=== PATIENT | female | born 1975 | race Caucasian/White ===

== ENCOUNTER 2020-10-09 18:35 | Emergency (ER) | payer OTHER ==
[2020-10-09 20:34] LABS: BILIRUBIN NEGATIVE (NEGATIVE); BLOOD NEGATIVE Ery/uL (NEGATIVE); CLARITY CLEAR (CLEAR); COLOR YELLOW (YELLOW); GLUCOSE (U) NORMAL (NORMAL); LEUKOCYTES NEGATIVE Leu/uL (NEGATIVE); NITRITE NEGATIVE (NEGATIVE); PROTEIN NEGATIVE (NEGATIVE); SPECIFIC GRAVITY <=1.005 (1.001-1.030); UROBILINOGEN 0.2 mg/dL (0.2-1.0)
[2020-10-09 20:54] LABS: BASOPHIL 0.3 % (0-2); EOSINOPHIL 0.1 % (0-5); HGB 14.5 g/dl (12.5-16.0); LYMPHOCYTE 8.4 % (15-48); MCH 31.9 pg (25.0-31.0); MCHC 33.7 g/dL (32.0-36.0); MCV 94.5 fL (78.0-100.0); MONOCYTE 0.8 % (0-12); NEUTROPHIL 89.9 % (41-80); NRBC 0; PLT 225 K/uL (150-400); RBC 4.55 M/uL (4.20-5.40); RDW 13.2 % (11.5-14.0); WBC 14.3 K/uL (4.0-10.5)
[2020-10-09 21:08] LABS: ALBUMIN 3.6 g/dL (3.4-5.0); BILIRUBIN - TOTAL 0.3 mg/dL (0.2-1.0); BUN/CREAT RATIO (CALC) 11.5 RATIO; CREATININE 0.61 mg/dL (0.51-0.95); GLOBULIN (CALCULATION) 3.8 g/dL; POTASSIUM 4.1 mmol/L (3.5-5.1); TOTAL PROTEIN 7.4 g/dL (6.4-8.2)
[2020-10-09 21:15] LABS: LACTIC ACID 1.8 mmol/L (0.4-1.9)
[2020-10-10] MEDS ORDERED: NORCO 5-325 TA1 EACH PO (08:15)
[2020-10-10] MEDS ORDERED: LEVSIN-SL0.125 M1 SL (08:15)
[2020-10-10] MEDS ORDERED: PHENERGAN25 M1 PO (08:15)
[2020-10-10] MEDS ORDERED: CORTEF10 MG PO (08:15)
== END 2020-10-10 08:54 | disposition home or self-care (01) ==
LOC: FER 18:35
PROVIDERS: Emergency Medicine Emergency Medical Services
DX: R10.84 Generalized abdominal pain (principal); R11.2 Nausea with vomiting, unspecified; R19.7 Diarrhea, unspecified; N83.202 Unspecified ovarian cyst, left side; F17.200 Nicotine dependence, unspecified, uncomplicated; Z88.2 Allergy status to sulfonamides; Z88.8 Allergy status to other drugs, medicaments and biological substances; Z88.1 Allergy status to other antibiotic agents; Z79.899 Other long term (current) drug therapy
CPT/HCPCS: 36415; 80053; 81003; 83605; 84145; 85025; 87040; J1170; J1720; J1885; J2405; J2550; J7030; Q9967

== ENCOUNTER 2020-11-18 09:37 | Emergency (ER) | payer OTHER ==
[~2020-11-18 09:37] MED LIST: CORTEF10 MG PO; LEVSIN-SL0.125 M1 SL; NORCO 5-325 TA1 EACH PO; PHENERGAN25 M1 PO
[2020-11-18 10:30] LABS: BILIRUBIN NEGATIVE (NEGATIVE); BLOOD 1+ Ery/uL (NEGATIVE); CLARITY CLEAR (CLEAR); COLOR YELLOW (YELLOW); GLUCOSE (U) NORMAL (NORMAL); LEUKOCYTES NEGATIVE Leu/uL (NEGATIVE); NITRITE NEGATIVE (NEGATIVE); PROTEIN NEGATIVE (NEGATIVE); UROBILINOGEN 0.2 mg/dL (0.2-1.0)
[2020-11-18 10:36] LABS: BASOPHIL 0.4 % (0-2); EOSINOPHIL 2.8 % (0-5); HCT 40.9 % (37.0-47.0); HGB 14.1 g/dl (12.5-16.0); LYMPHOCYTE 30.4 % (15-48); MCHC 34.5 g/dL (32.0-36.0); MCV 92.7 fL (78.0-100.0); MONOCYTE 9.8 % (0-12); MPV 11.9 fL (6.0-9.5); NEUTROPHIL 56.2 % (41-80); NRBC 0; PLT 227 K/uL (150-400); RBC 4.41 M/uL (4.20-5.40); RDW 13.2 % (11.5-14.0); WBC 9.7 K/uL (4.0-10.5)
[2020-11-18 10:40] LABS: URINARY RBC RARE
[2020-11-18 11:07] LABS: ALBUMIN 3.4 g/dL (3.4-5.0); BILIRUBIN - TOTAL 0.2 mg/dL (0.2-1.0); BUN/CREAT RATIO (CALC) 10.2 RATIO; CREATININE 0.59 mg/dL (0.51-0.95); GLOBULIN (CALCULATION) 3.5 g/dL; POTASSIUM 3.7 mmol/L (3.5-5.1); TOTAL PROTEIN 6.9 g/dL (6.4-8.2)
[2020-11-18] MEDS ORDERED: NORCO 5-325 TA1 EACH PO (14:20)
[2020-11-18] MEDS ORDERED: ZOFRAN4 M1 PO (14:20)
== END 2020-11-18 14:39 | disposition home or self-care (01) ==
LOC: FER 09:37
PROVIDERS: Emergency Medicine
DX: K29.70 Gastritis, unspecified, without bleeding (principal); N20.0 Calculus of kidney; F17.200 Nicotine dependence, unspecified, uncomplicated; Z87.19 Personal history of other diseases of the digestive system; Z90.49 Acquired absence of other specified parts of digestive tract; Z88.2 Allergy status to sulfonamides; Z88.8 Allergy status to other drugs, medicaments and biological substances
CPT/HCPCS: 36415; 80053; 81001; 83690; 85025; J1170; J1885; J2405; J7040

== ENCOUNTER 2020-12-31 20:13 | Emergency (ER) | payer OTHER ==
[~2020-12-31 20:13] MED LIST changes: +ZOFRAN4 M1 PO
[2020-12-31 21:45] LABS: BASOPHIL 0.4 % (0-2); EOSINOPHIL 2.2 % (0-5); HCT 42.3 % (37.0-47.0); MCH 31.1 pg (25.0-31.0); MCHC 33.1 g/dL (32.0-36.0); MONOCYTE 6.7 % (0-12); NEUTROPHIL 67.1 % (41-80); NRBC 0; PLT 240 K/uL (150-400); RDW 13.3 % (11.5-14.0); WBC 14.2 K/uL (4.0-10.5)
[2020-12-31 21:59] LABS: ALBUMIN 3.6 g/dL (3.4-5.0); BILIRUBIN - TOTAL 0.1 mg/dL (0.2-1.0); BUN/CREAT RATIO (CALC) 10.6 RATIO; CREATININE 0.66 mg/dL (0.51-0.95); GLOBULIN (CALCULATION) 3.6 g/dL; POTASSIUM 3.8 mmol/L (3.5-5.1); TOTAL PROTEIN 7.2 g/dL (6.4-8.2)
[2020-12-31 22:05] LABS: BILIRUBIN NEGATIVE (NEGATIVE); BLOOD NEGATIVE Ery/uL (NEGATIVE); CLARITY CLEAR (CLEAR); COLOR YELLOW (YELLOW); GLUCOSE (U) NORMAL (NORMAL); LEUKOCYTES TRACE Leu/uL (NEGATIVE); NITRITE NEGATIVE (NEGATIVE); PROTEIN NEGATIVE (NEGATIVE); SPECIFIC GRAVITY <=1.005 (1.001-1.030); UROBILINOGEN 0.2 mg/dL (0.2-1.0)
[2020-12-31 22:27] LABS: BACTERIA TRACE
[2021-01-01] MEDS ORDERED: TRAMADOL HCL50 MG PO ×2 (00:47→01:05)
== END 2021-01-01 00:57 | disposition home or self-care (01) ==
LOC: FER 20:13
PROVIDERS: Emergency Medicine
DX: R10.31 Right lower quadrant pain (principal); R11.2 Nausea with vomiting, unspecified; R19.7 Diarrhea, unspecified; F17.210 Nicotine dependence, cigarettes, uncomplicated; Z88.2 Allergy status to sulfonamides; Z88.1 Allergy status to other antibiotic agents; Z20.822 Contact with and (suspected) exposure to COVID-19
CPT/HCPCS: 36415; 80053; 81001; 85025; J1170; J1200; J1885; J2270; J2930; Q0162; Q9967; U0002